=== PATIENT | female | born 1980 | race Caucasian/White ===

== ENCOUNTER 2018-01-28 09:29 | Emergency (ER) | payer OTHER ==
[2018-01-28] MEDS: HYDROCODONE/APAP (5/325) TAB PO (10:34)
== END 2018-01-28 11:25 | disposition home or self-care (01) ==
LOC: FTE 09:29
DX: M54.5 Low back pain (principal); M54.2 Cervicalgia
CPT/HCPCS: 99284; Z7502